=== PATIENT | female | born 1985 | race Hispanic/Latino ===

== ENCOUNTER 2017-10-14 12:20 | Emergency (ER) | payer BC, MEDICAID ==
[2017-10-14 12:24] VITALS: BMI 25.6
[2017-10-14 12:33] VITALS: TEMP 98.1
--- NOTE | 2017-10-14 12:56 | C.PDOC ---
History Of Present Illness 32F c/o pleuritic chest pain and sob since last night. she had a fever of 101 3 days ago, no fever since but has had body aches, malaise, nausea. no cough. pmh paroxysmal afib on metoprolol and asa. traveled back from [place] 2 weeks ago. on ocp. denies smoking. no hx of dvt/pe. Time Seen by Provider: 10/14/17 12:36 Chief Complaint (Nursing): Chest Pain Past Medical History Vital Signs: Last Vital Signs Temp 98.1 F 10/14/17 12:25 Pulse 78 10/14/17 15:38 Resp 20 10/14/17 15:38 BP 129/81 10/14/17 15:38 Pulse Ox 100 10/14/17 16:27 - Medical History PMH: Atrial Fibrillation (PVC) Surgical History: Tonsillectomy Family History: States: Other Other Family History: no fh of bleeding/clotting disorder - Social History Hx Alcohol Use: Yes Hx Substance Use: Yes - Immunization History Hx Tetanus Toxoid Vaccination: No Hx Influenza Vaccination: No Hx Pneumococcal Vaccination: No Review Of Systems Constitutional: Positive for: Fever, Chills, Malaise ENT: Negative for: Nose Congestion, Throat Pain Cardiovascular: Positive for: Chest Pain, Light Headedness. Negative for: Edema Respiratory: Positive for: Shortness of Breath. Negative for: Cough, Hemoptysis Gastrointestinal: Positive for: Nausea. Negative for: Vomiting, Abdominal Pain Neurological: Negative for: Weakness, Numbness, Headache Physical Exam - Physical Exam Appears: Well, Non-toxic, No Acute Distress Skin: Warm, Dry Eye(s): bilateral: PERRL Nose: No Epistaxis Lips: No Swelling Neck: Supple Cardiovascular: Rhythm Regular Respiratory: No Decreased Breath Sounds, No Accessory Muscle Use, No Rales, No Rhonchi, No Stridor, No Wheezing Gastrointestinal/Abdominal: Soft, No Tenderness Extremity: No Pedal Edema, No Swelling Pulses: Left Radial: Normal, Right Radial: Normal Neurological/Psych: Oriented x3, Other (no focal deficits) ED Course And Treatment - Laboratory Results Result Diagrams: 10/14/17 13:24 10/14/17 13:24 O2 Sat by Pulse Oximetry: 100 Medical Decision Making Medical Decision Making: ecg- nsr 67, nl axis, nl int, no acute ischemia 1620 pt resting comfortable, appears well, no distress. disc results, plan for f /u, rtr. she v/u and agrees w plan, all questions and concerns addressed at this time. Angio chest CT PROCEDURE: CT Chest with contrast (Pulmonary Angiogram) HISTORY: cp elevated ddimer COMPARISON: None available. TECHNIQUE: Axial computed tomography images were obtained of the chest in the pulmonary arterial phase of enhancement. Coronal and sagittal reformatted images were created and reviewed. Intravenous contrast dose: 100 milliliters of visipaque Radiation dose: Total exam DLP = 324 mGy-cm. This CT exam was performed using one or more of the following dose reduction techniques: Automated exposure control, adjustment of the mA and/or kV according to patient size, and/or use of iterative reconstruction technique. FINDINGS: PULMONARY ARTERIES: Unremarkable. No pulmonary embolism. AORTA: No acute findings. No thoracic aortic aneurysm. LUNGS: Evaluation of the lungs reveals no evidence of focal infiltrate. Minor interstitial change and minor atelectasis are appreciated with some minimal subpleural bullous change noted. No significant bronchiectasis is noted. PLEURAL SPACES: Unremarkable. No effusion or pneuomothorax. HEART: Unremarkable. No cardiomegaly. No significant pericardial effusion. LYMPH NODES: No lymphadenopathy. BONES, CHEST WALL: Unremarkable. No fracture or destructive lesion OTHER FINDINGS: Visualized esophagus is unremarkable. Small hiatal hernia is not excluded. Images of the upper abdomen are unremarkable. Visualized spine is intact. IMPRESSION: No CT scan evidence of pulmonary embolism. No focal alveolar infiltrate. Disposition - Disposition Disposition: HOME/ ROUTINE Disposition Time: 16:26 Condition: GOOD Additional Instructions: Please follow up with your doctor. Return to the ER for any worsening symptoms or for any other concerns. Instructions: Pleurisy (ED) Forms: [facility] (Nepali), General Discharge Instructions - Clinical Impression Clinical Impression: Chest pain
[2017-10-14 13:06] LABS: HCG,QUALITATIVE URINE NEGATIVE (NEGATIVE)
[2017-10-14 13:14] LABS: SQUAMOUS EPITHIAL 47 /hpf (0-5); URINE BACTERIA OCC (<OCC); URINE BILIRUBIN NEGATIVE (NEGATIVE); URINE BLOOD NEGATIVE (NEGATIVE); URINE CLARITY Hazy (Clear); URINE COLOR Amber (YELLOW); URINE GLUCOSE (UA) NORMAL (Normal); URINE LEUKOCYTE ESTERASE 2+ Leu/uL (Negative); URINE NITRATE NEGATIVE (NEGATIVE); URINE PROTEIN 1+ mg/dL (NEGATIVE); URINE UROBILINOGEN NORMAL mg/dL (0.2-1.0)
[2017-10-14 13:29] LABS: EOS # 0.1 K/uL (0.0-0.7); EOS % 1.9 % (0.0-4.0); HEMOGLOBIN 11.9 g/dL (11.0-16.0); LYMPH # 1.2 K/uL (1.0-4.3); LYMPH % 30.1 % (20.0-40.0); MEAN CELL VOLUME 88.2 fL (81.0-99.0); MEAN CORPUSCULAR HEMOGLOBIN 30.5 pg (27.0-31.0); MEAN CORPUSCULAR HGB CONC 34.6 g/dL (33.0-37.0); MEAN PLATELET VOLUME 9.3 fL (7.2-11.7); MONO # 0.5 K/uL (0.0-0.8); MONO % 13.6 % (0.0-10.0); NEUT # 2.1 K/uL (1.8-7.0); NEUT % 53.4 % (50.0-75.0); RBC 3.89 Mil/uL (3.80-5.20); RED CELL DISTRIBUTION WIDTH 13.1 % (11.5-14.5); WHITE BLOOD COUNT 3.9 K/uL (4.8-10.8)
[2017-10-14 13:40] LABS: ALB/GLOB RATIO 1.3 (1.0-2.1); ALBUMIN 3.9 g/dL (3.5-5.0); ALT/SGPT 44 U/L (9-52); AST/SGOT 35 U/L (14-36); BLOOD UREA NITROGEN 10 mg/dL (7-17); CALCIUM 8.3 mg/dl (8.6-10.4); GFR AFRICAN-AMERICAN > 60; GFR NON-AFRICAN AMERICAN > 60
[2017-10-14] MEDS ORDERED: Iodixanol 320 MG/ML 100 ML BOTTLE IV ONE (14:39)
[2017-10-14 15:38] VITALS: BP 129/81; PULSE 78; RESP 20
--- NOTE | 2017-10-14 15:40 | CT ---
PROCEDURE: CT Chest with contrast (Pulmonary Angiogram) HISTORY: cp elevated ddimer COMPARISON: None available. TECHNIQUE: Axial computed tomography images were obtained of the chest in the pulmonary arterial phase of enhancement. Coronal and sagittal reformatted images were created and reviewed. Intravenous contrast dose: 100 milliliters of visipaque Radiation dose: Total exam DLP = 324 mGy-cm. This CT exam was performed using one or more of the following dose reduction techniques: Automated exposure control, adjustment of the mA and/or kV according to patient size, and/or use of iterative reconstruction technique. FINDINGS: PULMONARY ARTERIES: Unremarkable. No pulmonary embolism. AORTA: No acute findings. No thoracic aortic aneurysm. LUNGS: Evaluation of the lungs reveals no evidence of focal infiltrate. Minor interstitial change and minor atelectasis are appreciated with some minimal subpleural bullous change noted. No significant bronchiectasis is noted. PLEURAL SPACES: Unremarkable. No effusion or pneuomothorax. HEART: Unremarkable. No cardiomegaly. No significant pericardial effusion. LYMPH NODES: No lymphadenopathy. BONES, CHEST WALL: Unremarkable. No fracture or destructive lesion OTHER FINDINGS: Visualized esophagus is unremarkable. Small hiatal hernia is not excluded. Images of the upper abdomen are unremarkable. Visualized spine is intact. IMPRESSION: No CT scan evidence of pulmonary embolism. No focal alveolar infiltrate.
[2017-10-14 16:27] VITALS: O2SAT 100
--- NOTE | 2017-10-14 17:22 | RAD ---
HISTORY: cp sob COMPARISON: No prior. TECHNIQUE: Chest PA and lateral FINDINGS: LUNGS: No active pulmonary disease. PLEURA: No significant pleural effusion identified. No pneumothorax apparent. CARDIOVASCULAR: Normal. OSSEOUS STRUCTURES: No significant abnormalities. VISUALIZED UPPER ABDOMEN: Normal. OTHER FINDINGS: None. IMPRESSION: No active disease.
== END 2017-10-14 16:45 | disposition home or self-care (01) ==
LOC: C.ER 12:20
DX: R07.9 Chest pain, unspecified (principal)
CPT/HCPCS: 71046; 71275; 80053; 81001; 84484; 84703; 85025; 85378; 99285; Q9967